=== PATIENT | male | born 1970 | race Caucasian/White ===

== ENCOUNTER 2017-02-24 15:41 | Inpatient (IN) | payer MEDICARE, OTHER ==
[~2017-02-24] VITALS: Ht 182.9 cm; Wt 63.5 kg
[2017-02-24] VITALS (7 sets, daily range): BP systolic 101–127
[2017-02-24 15:56] LABS: BASOPHILS # (AUTO) 0.2 K/uL (0.0-0.2); BASOPHILS % (AUTO) 1.5 % (0.0-2.0); EOSINOPHILS # (AUTO) 0.2 K/uL (0.0-0.4); HEMATOCRIT 40.7 % (36-54); HEMOGLOBIN 13.6 g/dL (14.0-18.0); LYMPHOCYTES # (AUTO) 2.5 K/uL (1.0-5.5); LYMPHOCYTES % (AUTO) 24.6 % (20.5-51.5); MEAN CORPUSCULAR HEMOGLOBIN 32 pg (27-31); MEAN CORPUSCULAR HGB CONC 34 % (32-36); MEAN CORPUSCULAR VOLUME 97 fL (79.0-98.0); MONOCYTES # (AUTO) 0.7 K/uL (0.0-1.0); NEUTROPHILS # (AUTO) 6.5 K/uL (1.8-7.7); NEUTROPHILS % (AUTO) 64.9 % (40.0-70.0); PLATELET COUNT (AUTO) 186 K/uL (130-430); RED BLOOD CELL COUNT(AUTO) 4.22 MIL/uL (4.2-6.2); RED CELL DISTRIBUTION WIDTH 14.8 % (9.0-15.0); WHITE BLOOD COUNT (AUTO) 10.1 K/uL (4.8-10.8)
[2017-02-24 16:05] LABS: ANION GAP 7 (5-15); CALCIUM 8.9 mg/dL (8.4-11.0); CHLORIDE 104 mmol/L (98-107); CREATININE 0.86 mg/dL (0.55-1.30); GLUCOSE 97 mg/dL (70-99); POTASSIUM 3.9 mmol/L (3.5-5.1); SODIUM SERUM 139 mmol/L (136-145); UREA NITROGEN, BLOOD 7 mg/dL (8-21)
[2017-02-24 16:07] LABS: GFR AFRICAN AMERICAN 123 mL/min (>90)
[2017-02-24 16:09] LABS: ALANINE AMINOTRANSFERASE 37 U/L (12-78); ALBUMIN 3.7 g/dL (3.4-4.8); ALCOHOL, BLOOD 275 mg/dL (<10); ASPARTATE AMINOTRANSFERASE 30 U/L (10-37); PROTHROMBIN TIME 10.6 SECS (9.5-12.5); TOTAL BILIRUBIN 0.3 mg/dL (0.0-1.0)
[2017-02-24 16:11] LABS: ACETAMINOPHEN < 1 ug/mL (1-30)
[2017-02-24] MEDS ORDERED: ONDA4TAB22 PO (16:41)
[2017-02-24] MEDS ORDERED: TYC3 PO (16:41)
[2017-02-24] MEDS ORDERED: OMEP-130 PO (16:41)
[2017-02-24] MEDS ORDERED: LORazepam 2 MG/ML VIAL (FOR ER USE) IVP ONE ×2 (16:45→17:15)
[2017-02-24 16:56] LABS: BILIRUBIN,URINE NEGATIVE (NEGATIVE); BLOOD, URINE NEGATIVE (NEGATIVE); CLARITY/URINE CLEAR (CLEAR); COLOR,URINE YELLOW (YELLOW); GLUCOSE,URINE NEGATIVE (NEGATIVE); KETONES,URINE NEGATIVE (NEGATIVE); LEUKOCYTE ESTERASE ,URINE NEGATIVE (NEGATIVE); NITRITE, URINE NEGATIVE (NEGATIVE); PROTEIN URINE NEGATIVE (NEGATIVE); UROBILINOGEN,URINE 0.2 (0.2-1.0)
[2017-02-24 17:08] LABS: BARBITURATE, URINE POSITIVE (NEG <=200); BENZODIAZEPINE, URINE NEGATIVE (NEG <=150); CANNABINOID, URINE NEGATIVE (NEG <=50); COCAINE, URINE NEGATIVE (NEG <=150); METHAMPHETAMINES SCREEN,URINE NEGATIVE (NEG <=500); OPIATE, URINE POSITIVE (NEG <=100); PHENCYCLIDINE SCREEN,URINE NEGATIVE (NEG <=25); UR TRICYCLIC ANTIDEPRESSANTS NEGATIVE (NEG <=300); URINE AMPHETAMINE NEGATIVE (NEG <=500); URINE METHADONE NEGATIVE (NEG <=200); URINE OXYCODONE SCREEN NEGATIVE (NEG <=100); URINE PROPOXYPHENE SCREEN NEGATIVE (NEG <=300)
[2017-02-24] MEDS ORDERED: LORazepam 2 MG/ML VIAL (FOR ER USE) ONE (17:24)
[2017-02-24] MEDS ORDERED: ONDANSETRON HCL 4 MG/2 ML VIAL IVP PRN (18:30)
[2017-02-24] MEDS ORDERED: FAMOTIDINE 20 MG TABLET PO ONE (18:45)
[2017-02-24] MEDS ORDERED: ACETAMINOPHEN 325 MG TABLET PO PRN (18:45)
[2017-02-24] MEDS: LORazepam 2 MG/ML VIAL IVP PRN (19:19)
[2017-02-24] MEDS: chlordiazePOXIDE HCL 25 MG CAPSULE PO SCH (20:01)
[2017-02-25] VITALS (17 sets, daily range): BP systolic 112–153
[2017-02-25] MEDS: LORazepam 2 MG/ML VIAL IVP PRN (01:10)
[2017-02-25] MEDS: chlordiazePOXIDE HCL 25 MG CAPSULE PO SCH ×3 (02:29→18:10)
[2017-02-25 06:34] LABS: BASOPHILS # (AUTO) 0.1 K/uL (0.0-0.2); BASOPHILS % (AUTO) 1.2 % (0.0-2.0); EOSINOPHILS # (AUTO) 0.3 K/uL (0.0-0.4); EOSINOPHILS % (AUTO) 4.3 % (0.0-4.0); HEMATOCRIT 41.3 % (36-54); HEMOGLOBIN 13.9 g/dL (14.0-18.0); LYMPHOCYTES # (AUTO) 1.7 K/uL (1.0-5.5); LYMPHOCYTES % (AUTO) 23.8 % (20.5-51.5); MEAN CORPUSCULAR HEMOGLOBIN 32 pg (27-31); MEAN CORPUSCULAR HGB CONC 34 % (32-36); MEAN CORPUSCULAR VOLUME 96 fL (79.0-98.0); MONOCYTES # (AUTO) 0.7 K/uL (0.0-1.0); MONOCYTES % (AUTO) 9.1 % (1.7-9.3); NEUTROPHILS # (AUTO) 4.4 K/uL (1.8-7.7); NEUTROPHILS % (AUTO) 61.6 % (40.0-70.0); PLATELET COUNT (AUTO) 171 K/uL (130-430); RED CELL DISTRIBUTION WIDTH 14.8 % (9.0-15.0); WHITE BLOOD COUNT (AUTO) 7.2 K/uL (4.8-10.8)
[2017-02-25 07:08] LABS: ALBUMIN 3.5 g/dL (3.4-4.8); CALCIUM 9.3 mg/dL (8.4-11.0); CREATININE 0.9 mg/dL (0.55-1.30); POTASSIUM 4.3 mmol/L (3.5-5.1); THYROID STIMULATING HORMONE 0.44 uIu/mL (0.34-4.82); TOTAL BILIRUBIN 0.6 mg/dL (0.0-1.0)
[2017-02-25] MEDS: FOLIC ACID 1 MG TABLET PO SCH (08:48)
[2017-02-25] MEDS: FAMOTIDINE 20 MG TABLET PO SCH (08:48)
[2017-02-25] MEDS: levETIRAcetam 500 MG TABLET PO SCH ×2 (08:49→20:27)
[2017-02-25] MEDS: THIAMINE HCL 100 MG TABLET PO SCH (08:49)
[2017-02-25] MEDS ORDERED: traMADol HCL HCL 50 MG TABLET (ULTRAM) PO ONE (11:30)
[2017-02-25] MEDS ORDERED: traMADol HCL HCL 50 MG TABLET (ULTRAM) PO PRN (21:45)
[2017-02-25] MEDS: traMADol HCL HCL 50 MG TABLET (ULTRAM) PO PRN (22:03)
[2017-02-26 00:10] VITALS: BP_SYST 130
[2017-02-26] MEDS: chlordiazePOXIDE HCL 25 MG CAPSULE PO SCH ×3 (03:59→19:01)
[2017-02-26 04:30] VITALS: BP_SYST 127
[2017-02-26 08:00] VITALS: BP_SYST 115
[2017-02-26] MEDS: THIAMINE HCL 100 MG TABLET PO SCH (09:54)
[2017-02-26] MEDS: FOLIC ACID 1 MG TABLET PO SCH (09:54)
[2017-02-26] MEDS: levETIRAcetam 500 MG TABLET PO SCH (09:54)
[2017-02-26] MEDS: FAMOTIDINE 20 MG TABLET PO SCH (09:54)
[2017-02-26] MEDS: traMADol HCL HCL 50 MG TABLET (ULTRAM) PO PRN (11:17)
[2017-02-26 13:03] VITALS: BP_SYST 105
[2017-02-26 17:57] VITALS: BP_SYST 108
[2017-02-26 20:00] VITALS: BP_SYST 116
== END 2017-02-26 21:20 | disposition left against medical advice (07) | DRG 53 ==
LOC: SED 15:41 → SIC 17:09 → STU 02-25 15:38
PROVIDERS: ADMIT Internal Medicine; ATTEND Internal Medicine
DX: G40.909 Epilepsy, unspecified, not intractable, without status epilepticus (principal); F10.231 Alcohol dependence with withdrawal delirium; F17.210 Nicotine dependence, cigarettes, uncomplicated; Y90.8 Blood alcohol level of 240 mg/100 ml or more; I49.3 Ventricular premature depolarization; Z53.21 Procedure and treatment not carried out due to patient leaving prior to being seen by health care provider; Z88.6 Allergy status to analgesic agent; Z79.899 Other long term (current) drug therapy
CPT/HCPCS: 36415; 70450-TC; 71010; 80053; 80307; 81003; 82550-TC; 83735-TC; 84443-TC; 84484; 85025; 85610-TC; 85730-TC; 87040-TC; 87081; 93005; 95816; 96374; 96376; 99285; G0480; G0481; G0482; J2060

== ENCOUNTER 2023-09-13 13:27 | Emergency (ER) | payer MEDICAID, MEDICARE ==
[~2023-09-13] VITALS: Ht 180.3 cm; Wt 74.8 kg
[~2023-09-13 13:27] MED LIST: OMEP-268 PO; ONDA4TAB22 PO; TYC3 PO
[2023-09-13 13:40] VITALS: BP_SYST 132; PULSE 93; RESP 18; TEMP 97.4; O2SAT 96
[2023-09-13] MEDS: ONDANSETRON HCL 4 MG/2 ML VIAL IVP ONE (14:56)
[2023-09-13] MEDS: MORPHINE 4 MG INJ. 4 MG/ML VIAL IVP ONE (14:58)
[2023-09-13] MEDS: NACL 0.9% 1,000 ML IV ONE ×2 (14:59→17:03)
[2023-09-13 15:59] LABS: BASOPHILS % (AUTO) 0.4 % (0.0-2.0); EOSINOPHILS # (AUTO) 0.1 K/uL (0.0-0.4); EOSINOPHILS % (AUTO) 0.9 % (0.0-4.0); HEMATOCRIT 39.5 % (36-54); HEMOGLOBIN 13.3 g/dL (14.0-18.0); LYMPHOCYTES # (AUTO) 1.3 K/uL (1.0-5.5); LYMPHOCYTES % (AUTO) 11.5 % (20.5-51.5); MEAN CORPUSCULAR HEMOGLOBIN 29 pg (27-31); MEAN CORPUSCULAR HGB CONC 34 % (32-36); MEAN CORPUSCULAR VOLUME 87 fL (79.0-98.0); MONOCYTES # (AUTO) 0.7 K/uL (0.0-1.0); MONOCYTES % (AUTO) 5.9 % (1.7-9.3); NEUTROPHILS # (AUTO) 9.1 K/uL (1.8-7.7); NEUTROPHILS % (AUTO) 81.3 % (40.0-70.0); PLATELET COUNT (AUTO) 321 K/uL (130-430); RED BLOOD CELL COUNT(AUTO) 4.54 MIL/uL (4.2-6.2); RED CELL DISTRIBUTION WIDTH 13.4 % (9.0-15.0); WHITE BLOOD COUNT (AUTO) 11.2 K/uL (4.8-10.8)
[2023-09-13 16:13] LABS: ALANINE AMINOTRANSFERASE 28 U/L (12-78); ALBUMIN 3.4 g/dL (3.4-4.8); ANION GAP 7 (5-15); ASPARTATE AMINOTRANSFERASE 15 U/L (10-37); CALCIUM 8.7 mg/dL (8.4-11.0); CARBON DIOXIDE 28 mmol/L (23-29); CHLORIDE 104 mmol/L (98-107); GFR AFRICAN AMERICAN 130 mL/min (>90); GFR NON AFRICAN-AMERICAN 107 mL/min (>90); GLUCOSE 133 mg/dL (74-106); SODIUM SERUM 139 mmol/L (136-145); TOTAL BILIRUBIN 0.3 mg/dL (0.0-1.0); TOTAL PROTEIN, SERUM 7.7 g/dL (6.4-8.3); UREA NITROGEN, BLOOD 20 mg/dL (8-21)
[2023-09-13 16:16] LABS: BILIRUBIN,DIRECT 0.1 mg/dL (0.0-0.3); LIPASE 42 U/L (16-77)
[2023-09-13] MEDS ORDERED: ONDA-8 TL (16:43)
[2023-09-13] MEDS ORDERED: TRAM50TA2 PO (16:43)
[2023-09-13] MEDS: KETOROLAC TROMETHAMINE 30 MG VIAL IVP ONE (17:02)
[2023-09-13 19:15] VITALS: BP_SYST 124; PULSE 99; RESP 21; TEMP 97.4; O2SAT 92
== END 2023-09-13 19:15 | disposition home or self-care (01) ==
LOC: SED 13:27
DX: K86.1 Other chronic pancreatitis (principal); R10.13 Epigastric pain; R11.2 Nausea with vomiting, unspecified; Z88.5 Allergy status to narcotic agent; Z88.6 Allergy status to analgesic agent; Z79.899 Other long term (current) drug therapy
CPT/HCPCS: 99285; 74176; 96374; 96361; 96375; 80076; 80048; 83690; 85025; 84484; 36415; 93005; J1885; J2405; J2270; J7030